=== PATIENT | male | born 1975 | race Caucasian/White ===

== ENCOUNTER 2019-02-15 23:21 | Emergency (ER) | payer MEDICAID ==
[~2019-02-15] VITALS: Ht 170.2 cm; Wt 81.6 kg
[2019-02-15 23:21] VITALS: BP_SYST 140
[2019-02-15] MEDS ORDERED: IBUPROFEN 800 MG TABLET PO ONE (23:45)
[2019-02-15] MEDS ORDERED: CEPHALEXIN 500 MG CAPSULE PO ONE (23:45)
[2019-02-15] MEDS ORDERED: SULFAMETHOXAZOLE/TRIMETHOPR DS 1 TABLET PO ONE (23:45)
[2019-02-16 00:05] VITALS: BP_SYST 140
[2019-02-16] MEDS ORDERED: BACITRACIN 1 GM OINT TP ONE (00:14)
== END 2019-02-16 00:05 ==
LOC: SED 23:21
DX: T81.49XA Infection following a procedure, other surgical site, initial encounter (principal); Z48.02 Encounter for removal of sutures; W27.0XXA Contact with workbench tool, initial encounter; Y93.89 Activity, other specified; Y92.69 Other specified industrial and construction area as the place of occurrence of the external cause; Y99.8 Other external cause status
CPT/HCPCS: 99284